=== PATIENT | female | born 1950 | race Caucasian/White ===

== ENCOUNTER 2017-01-17 01:02 | Emergency (ER) | payer MEDICARE, OTHER ==
[~2017-01-17] VITALS: Ht 160 cm; Wt 76.0 kg
[~2017-01-17 01:02] MED LIST: ALPH1CAP3 PO; AMBI10TA PO; AMIT10TA13 PO; ATOR10 PO; BENI20TA25 PO; BENI40TA30 PO; CALTTAB PO; CELE200 PO; CIPR500T93 PO; CLON.5 PO; CYCL-36 PO; FOLI1TAB PO; LEVO.075 PO; LIDO2SOL MT; METO25 PO; NEUR600T PO; PRED1TAB PO; PREM1.25 PO; PROT40TA PO; RITU500I IV; SUCR1TAB PO; SUMA20I; TAB-TAB PO; [UNRECOGNIZED DRUG - CODE] PO
[2017-01-17 01:12] VITALS: BP 119/89; PULSE 102; RESP 18; TEMP 98.7; O2SAT 96
[2017-05-01] MEDS ORDERED: CYCL1TAB29 (15:23)
[2017-05-01] MEDS ORDERED: ATOR10TA15 (15:23)
[2017-05-01] MEDS ORDERED: OLME0.09 (15:23)
[2017-05-01] MEDS ORDERED: PRED5TAB (15:23)
[2017-05-01] MEDS ORDERED: HYDR200T3 (15:23)
[2017-05-01] MEDS ORDERED: MORP1TAB25 (15:23)
[2017-05-01] MEDS ORDERED: METR250T15 (15:23)
[2017-05-01] MEDS ORDERED: MINO1TAB (15:23)
[2017-05-01] MEDS ORDERED: FOLI1TAB6 (15:23)
[2017-05-01] MEDS ORDERED: GABA600T (15:23)
[2017-05-01] MEDS ORDERED: CARA1SUS3 (15:23)
[2017-05-01] MEDS ORDERED: CELE1CAP8 (15:23)
[2017-05-01] MEDS ORDERED: PRED1 (15:23)
[2017-05-01] MEDS ORDERED: ESTR1.25 (15:23)
[2017-05-01] MEDS ORDERED: CLON0.12 (15:23)
[2017-05-01] MEDS ORDERED: LIDO1SOL8 (15:23)
[2017-05-01] MEDS ORDERED: AMIT25TA9 (15:23)
[2017-05-01] MEDS ORDERED: METF500T (15:23)
[2017-05-01] MEDS ORDERED: OLME1TAB13 (15:23)
[2017-05-01] MEDS ORDERED: PANT40TA3 (15:23)
[2017-05-01] MEDS ORDERED: ZOLP10TA3 (15:23)
[2017-05-01] MEDS ORDERED: LEVO.125 (15:23)
[2017-05-01] MEDS ORDERED: METO25TA3 (15:23)
== END 2017-01-17 03:11 | disposition left against medical advice (07) ==
LOC: PHED 01:02
DX: M79.642 Pain in left hand (principal)
CPT/HCPCS: 99281

== ENCOUNTER 2018-05-24 12:57 | Observation (INO) ==
--- NOTE | 2018-05-24 14:14 | ED ---
HPI General Chief complaint: Medical Clearance Stated complaint: Lt big toe infection x 10 days Time Seen by Provider: 05/24/18 13:50 Source: patient Mode of arrival: ambulatory Limitations: no limitations History of Present Illness HPI narrative: 67yo F with PMH of DM, rheumatoid arthritis presents to the ED with c/o worsening redness in left big toe today. Pt went to dispute resolution analyst Dr. Brown yesterday and was given bactrim and took 2 doses. She called his office again this morning and said it got worst so she was told to come to the ED for IV antibiotics. Denies any fever, chest pain, sob, n/v, abdominal pain, focal weakness or numbness. Related Data Home Medications Medication Instructions Recorded Confirmed Olmesamedox 10 mg PO HS 05/24/18 05/24/18 alpha lipoic acid 600 mg PO BID 05/24/18 05/24/18 amitriptyline 25 mg PO HS 05/24/18 05/24/18 atorvastatin 10 mg PO DAILY 05/24/18 05/24/18 celecoxib [Celebrex] 200 mg PO BID 05/24/18 05/24/18 clonazepam 0.125 mg PO BID 05/24/18 05/24/18 folic acid 1 mg PO DAILY 05/24/18 05/24/18 gabapentin 600 mg PO TID 05/24/18 05/24/18 hydroxychloroquine 200 mg PO BID 05/24/18 05/24/18 levothyroxine [Synthroid] 125 mcg PO DAILY 05/24/18 05/24/18 lidocaine HCl [Lidocaine Viscous] 1.25 ml MUCOUS MEMBRANE Q4H PRN 05/24/1805/24 metformin 2,000 mg PO BID 05/24/18 05/24/18 metoprolol tartrate 25 mg PO DAILY 05/24/18 05/24/18 minocycline 50 mg PO BID 05/24/18 05/24/18 morphine 30 mg PO Q12HR 05/24/18 05/24/18 pantoprazole 40 mg PO DAILY 05/24/18 05/24/18 prednisone 6 mg PO DAILY 05/24/18 05/24/18 zolpidem 1 tab PO HS 05/24/18 05/24/18 Allergies Allergy/AdvReac Type Severity Reaction Status Date / Time diatrizoate meglumine Allergy Severe Swelling Verified 05/24/18 13:12 gadobenic acid Allergy Severe Swelling Verified 05/24/18 13:12 gadodiamide Allergy Severe Swelling Verified 05/24/18 13:12 gadoteridol Allergy Severe Swelling Verified 05/24/18 13:12 iodixanol Allergy Severe Swelling Verified 05/24/18 13:12 iohexol Allergy Severe Swelling Verified 05/24/18 13:12 AMOX-CLAV Allergy Severe DENIES Uncoded 03/06/14 15:11 ALLERGY Review of Systems ROS Unobtainable All other systems reviewed negative except as stated in HPI [facility] Medical History Medical History Chronic obstructive pulmonary disease (Acute) Chronic pain (Acute) Diabetes 1.5, managed as type 2 (Acute) Fibromyalgia (Acute) Gastroesophageal reflux (Acute) History of esophageal stricture (Acute) History of hiatal hernia (Acute) History of migraine (Acute) Hyperlipidemia (Acute) Obstructive sleep apnea (Acute) Rheumatoid arthritis (Acute) Surgical History Surgical History H/O toe surgery (Acute) History of Aramis fundoplication (Acute) History of appendectomy (Acute) History of bilateral knee replacement (Acute) History of tonsillectomy (Acute) Hx of section (Acute) Hx of surgical fusion joint (Acute) S/P wrist surgery (Acute) Social History Social History Substance History: No History of Abuse Second Hand Smoke Exposure: No Smoking Status: Never smoker How Often Do You Have a Drink Containing Alcohol: Never Recent Travel in [facility] within the Last 8 Weeks: No Recent Out of Country Travel within the Last 8 Weeks: No Immunization History Tetanus Immunization: <5 Years Hx Influenza Vaccine This Season: Yes Exam Narrative Exam Narrative: GENERAL: 67yo F not in distress. SKIN: Focused skin assessment warm/dry. HEAD: Atraumatic. Normocephalic. EYES: Pupils equal and round. No scleral icterus. No injection or drainage. CARDIOVASCULAR: Regular rate and rhythm. No murmur appreciated. RESPIRATORY: No accessory muscle use. Clear to auscultation. Breath sounds equal bilaterally. GASTROINTESTINAL: Abdomen soft, non-tender, nondistended. MUSCULOSKELETAL: Left foot: +2cm by 2cm erythema medial aspect of 1st metatarsal. NEUROLOGICAL: Awake and alert. No obvious cranial nerve deficits. Motor grossly within normal limits. Normal speech. PSYCHIATRIC: Appropriate mood and affect; insight and judgment normal. Course Initial Documented Vital Signs Temperature 98.0 F 05/24/18 13:12 Pulse Rate 89 05/24/18 13:12 Respiratory Rate 16 05/24/18 13:12 Blood Pressure 122/74 05/24/18 13:12 Pulse Oximetry 96 05/24/18 13:12 Last Documented Vital Signs Temperature 98.0 F 05/24/18 13:12 Pulse Rate 89 05/24/18 13:12 Respiratory Rate 16 05/24/18 13:12 Blood Pressure 122/74 05/24/18 13:12 Pulse Oximetry 96 05/24/18 13:12 Medical Decision Making MDM Narrative Medical decision making narrative: 67yo F with left toe infection was sent in by her dispute resolution analyst Dr. Arellano for IV antibiotics and admission. I spoke to Dr. Arellano on the phone and did send him a picture of her left toe after obtaining patient permission. He said it does look worst and wants to obtain labs including ESR and MRI foot with and without contrast if creatinine normal. Want to admit pt under hospitalist and he will consult so I ordered IV vancomycin and place podiatry consult. Labs reviewed, no leukocytosis. H/H normal. Creatinine normal. ESR normal at 6. Lactic acid mildly elevated at 2.3. MRI of left foot with and without contrast ordered. Pt said she is not allergic to MRI contrast. MRI left foot showed soft tissue swelling. No evidence of septic arthritis or osteomyelitis. Pt admitted for observation with podiatry consult since Dr. Arellano noticed worsening of cellulitis while on PO antibiotics. Discussed with Dr. Castañeda and accepted to his service. Differential Diagnosis Differential Diagnosis: Osteomyelitis vs. septic joint vs. cellulitis vs. abscess Lab Data Result diagrams: 05/24/18 14:25 05/24/18 14:25 Lab Results 05/24/18 05/24/18 05/24/18 Range/Units 14:25 14:25 14:25 CBC w Diff Auto diff final WBC 10.9 (4.0-11.0) th/mm3 RBC 4.76 (4.00-5.30) mil/mm3 Hgb 13.6 (11.6-15.3) gm/dL Hct 40.8 (35.0-46.0) % MCV 85.7 (80.0-100.0) fL MCH 28.7 (27.0-34.0) pg MCHC 33.4 (32.0-36.0) % RDW 14.1 (11.6-17.2) % Plt Count 316 (150-450) th/mm3 MPV 8.5 (7.0-11.0) fL Neut % (Auto) 76.4 H (16.0-70.0) % Lymph % (Auto) 17.6 (9.0-44.0) % [place] % (Auto) 4.0 (0.0-8.0) % Eos % (Auto) 1.3 (0.0-4.0) % Baso % (Auto) 0.7 (0.0-2.0) % Neut # (Auto) 8.4 H (1.8-7.7) th/mm3 Lymph # (Auto) 1.9 (1.0-4.8) th/mm3 [place] # (Auto) 0.4 (0.0-0.9) th/mm3 Eos # (Auto) 0.1 (0.0-0.4) th/mm3 Baso # (Auto) 0.1 (0.0-0.2) th/mm3 WBC Differential . Differential Comment . ESR (0-30) mm/hr PT 10.2 (9.8-11.6) sec INR 1.0 Ratio APTT 24.2 L (24.3-30.1) sec Sodium 138 (136-145) meq/L Potassium 4.2 (3.5-5.1) meq/L Chloride 106 (98-107) meq/L Carbon Dioxide 24.1 (21.0-32.0) meq/L Anion Gap 8 (5-15) meq/L BUN 18 (7-18) mg/dL Creatinine 0.85 (0.50-1.00) mg/dL Estimated GFR 67 L (>89) mL/min POC Glucose (68-110) mg/dl Random Glucose 137 H (74-106) mg/dL Lactic Acid (0.4-2.0) mmol/L Calcium 9.4 (8.5-10.1) mg/dL 05/24/18 05/24/18 05/24/18 Range/Units 14:25 14:35 16:55 CBC w Diff WBC (4.0-11.0) th/mm3 RBC (4.00-5.30) mil/mm3 Hgb (11.6-15.3) gm/dL Hct (35.0-46.0) % MCV (80.0-100.0) fL MCH (27.0-34.0) pg MCHC (32.0-36.0) % RDW (11.6-17.2) % Plt Count (150-450) th/mm3 MPV (7.0-11.0) fL Neut % (Auto) (16.0-70.0) % Lymph % (Auto) (9.0-44.0) % [place] % (Auto) (0.0-8.0) % Eos % (Auto) (0.0-4.0) % Baso % (Auto) (0.0-2.0) % Neut # (Auto) (1.8-7.7) th/mm3 Lymph # (Auto) (1.0-4.8) th/mm3 [place] # (Auto) (0.0-0.9) th/mm3 Eos # (Auto) (0.0-0.4) th/mm3 Baso # (Auto) (0.0-0.2) th/mm3 WBC Differential Differential Comment ESR 6 (0-30) mm/hr PT (9.8-11.6) sec INR Ratio APTT (24.3-30.1) sec Sodium (136-145) meq/L Potassium (3.5-5.1) meq/L Chloride (98-107) meq/L Carbon Dioxide (21.0-32.0) meq/L Anion Gap (5-15) meq/L BUN (7-18) mg/dL Creatinine (0.50-1.00) mg/dL Estimated GFR (>89) mL/min POC Glucose (68-110) mg/dl Random Glucose (74-106) mg/dL Lactic Acid 2.3 H 1.5 (0.4-2.0) mmol/L Calcium (8.5-10.1) mg/dL 05/24/18 Range/Units 17:05 CBC w Diff WBC (4.0-11.0) th/mm3 RBC (4.00-5.30) mil/mm3 Hgb (11.6-15.3) gm/dL Hct (35.0-46.0) % MCV (80.0-100.0) fL MCH (27.0-34.0) pg MCHC (32.0-36.0) % RDW (11.6-17.2) % Plt Count (150-450) th/mm3 MPV (7.0-11.0) fL Neut % (Auto) (16.0-70.0) % Lymph % (Auto) (9.0-44.0) % [place] % (Auto) (0.0-8.0) % Eos % (Auto) (0.0-4.0) % Baso % (Auto) (0.0-2.0) % Neut # (Auto) (1.8-7.7) th/mm3 Lymph # (Auto) (1.0-4.8) th/mm3 [place] # (Auto) (0.0-0.9) th/mm3 Eos # (Auto) (0.0-0.4) th/mm3 Baso # (Auto) (0.0-0.2) th/mm3 WBC Differential Differential Comment ESR (0-30) mm/hr PT (9.8-11.6) sec INR Ratio APTT (24.3-30.1) sec Sodium (136-145) meq/L Potassium (3.5-5.1) meq/L Chloride (98-107) meq/L Carbon Dioxide (21.0-32.0) meq/L Anion Gap (5-15) meq/L BUN (7-18) mg/dL Creatinine (0.50-1.00) mg/dL Estimated GFR (>89) mL/min POC Glucose 86 (68-110) mg/dl Random Glucose (74-106) mg/dL Lactic Acid (0.4-2.0) mmol/L Calcium (8.5-10.1) mg/dL Imaging Data Radiologist's impression: Foot MRI 05/24/18 15:23 CONCLUSION: 1. Soft tissue swelling with mild enhancement along the medial aspect of the interphalangeal joint of the great toe.. This may represent focal cellulitis. 2. No evidence of septic arthritis or osteomyelitis or 3. Deformity of the interphalangeal joint of the great toe characteristic of degenerative arthropathy. Discharge Plan Discharge Disposition Patient Disposition: 30 Still Patient Physicians Team ED Provider: Yasemin Patel Primary Care Provider: Lamine Lo Attending Provider: Jorge Castañeda Other Providers: Nathan Arellano Status ED Status: Admitted Observation Patient
[2018-05-24 14:41] LABS: Baso # (Auto) 0.1 th/mm3 (0.0-0.2); Baso % (Auto) 0.7 % (0.0-2.0); Eos # (Auto) 0.1 th/mm3 (0.0-0.4); Eos % (Auto) 1.3 % (0.0-4.0); Hematocrit 40.8 % (35.0-46.0); Hemoglobin 13.6 gm/dL (11.6-15.3); Lymph # (Auto) 1.9 th/mm3 (1.0-4.8); Lymph % (Auto) 17.6 % (9.0-44.0); Mean Corpuscular HGB Conc 33.4 % (32.0-36.0); Mean Corpuscular Hemoglobin 28.7 pg (27.0-34.0); Mean Corpuscular Volume 85.7 fL (80.0-100.0); Mean Platelet Volume 8.5 fL (7.0-11.0); Mono # (Auto) 0.4 th/mm3 (0.0-0.9); Neut # (Auto) 8.4 th/mm3 (1.8-7.7); Neut % (Auto) 76.4 % (16.0-70.0); Platelet Count 316 th/mm3 (150-450); Red Blood Count 4.76 mil/mm3 (4.00-5.30); Red Cell Distribution Width 14.1 % (11.6-17.2); White Blood Count 10.9 th/mm3 (4.0-11.0)
[2018-05-24 14:53] LABS: Potassium 4.2 meq/L (3.5-5.1)
[2018-05-24 14:56] LABS: Activated Partial Thrombo Time 24.2 sec (24.3-30.1); Calcium 9.4 mg/dL (8.5-10.1); Prothrombin Time 10.2 sec (9.8-11.6)
[2018-05-24 14:57] LABS: Carbon Dioxide 24.1 meq/L (21.0-32.0)
[2018-05-24] MEDS ORDERED: Vancomycin Inj 1 GM/200 ML PIGGYBACK IV.SIG SCH (15:00)
[2018-05-24] MEDS ORDERED: Vancomycin Inj 1 GM/200 ML PIGGYBACK IV.SIG ONE (16:05)
[2018-05-24] MEDS ORDERED: Gadodiamide PF Inj 287 MG/ML 5 ML Syringe (for RAD MRI) IVCONTRAST ONE (16:40)
--- NOTE | 2018-05-24 17:20 | MR ---
EXAM DATE: 05/24/2018 4:53 PM EDT AGE/SEX: 67 years / Female INDICATIONS: Osteomyelitis. Left foot infection, sore on great toe on medial side. CLINICAL DATA: This is the patient's initial encounter. Patient reports that signs and symptoms have been present for 1 week and indicates a pain score of 7/10. MEDICAL/SURGICAL HISTORY: Diabetes mellitus type II. Rheumatoid arthritis. section. B ilateral hips and bilateral knee replacement. COMPARISON: No prior exams available for comparison. TECHNIQUE: Multiplanar, multisequence MRI examination was performed without contrast and after th e intravenous administration of 13 ml Gadavist (gadobutrol) single exam dose. FINDINGS: Bones: Bone marrow signal intensity is well-maintained throughout the osseous structures. There are n o cortically destructive changes or evidence of bone marrow edema. There is no evidence of abnormal e nhancement. Joint Spaces: Significant arthropathy is identified of the interphalangeal joint of the great toe. Th ere is irregularity along the articulating surfaces with mild marginal spurring. Joints are otherwise well-maintained. Tendons: The flexor tendons are intact. Soft Tissues: Tissue swelling is identified along the medial aspect of the great toe adjacent to the interphalangeal joint. No other significant soft tissue abnormality is noted. Other: The plantar fascia is intact. No signal abnormalities are seen in the plantar musculature. Post Contrast: There are no abnormal areas of enhancement in the marrow or muscles on images obtained after intravenous administration of gadolinium. CONCLUSION: 1. Soft tissue swelling with mild enhancement along the medial aspect of the interphalangeal joint o f the great toe.. This may represent focal cellulitis. 2. No evidence of septic arthritis or osteomyelitis or 3. Deformity of the interphalangeal joint of the great toe characteristic of degenerative arthropath y. Electronically signed by: Jose Dao MD 05/24/2018 5:18 PM EDT
[2018-05-24] MEDS ORDERED: Temazepam 15 MG Capsule PO PRN (17:21)
[2018-05-24] MEDS ORDERED: Bisacodyl 10 MG Supp RECTAL PRN (17:21)
[2018-05-24] MEDS ORDERED: Acetaminophen 325 MG Tablet PO PRN (17:21)
[2018-05-24] MEDS ORDERED: Dextrose 50% in Water 50 ML Vial IV.PUSH PRN (17:23)
[2018-05-24] MEDS ORDERED: Sod Chloride 0.9% Inj 1,000 ML IV.CONT SCH (17:30)
--- NOTE | 2018-05-24 17:43 | P.HP ---
History of Present Illness Primary Care Physician: Lamine Lo MD Chief Complaint: Left great toe redness History of Present Illness: 67-year-old female with rather significant medical history of diabetes , rheumatoid arthritis, fibromyalgia, chronic obstructive pulmonary disease who presented to the emergency department at the request of her manager image office because of her left great toe redness. Patient states that she is under care of Dr. Quezada in outpatient setting and he started her on antibiotics yesterday of Bactrim. She took 2 doses of antibiotics and she did not feel that if her toe was improving so she called Dr. Quezada office and they recommended that she go to the ER for evaluation. Patient had workup done in the emergency department which is relatively unremarkable. There is no leukocytosis, sed rate was normal, MRI was performed of the foot which did not indicate any signs of septic arthritis or osteomyelitis. Showed possible focal cellulitis. It was recommended that the patient be observed in the hospital with IV antibiotics to evaluate for improvement. - Diagnosis (1) Cellulitis of great toe, left Review of Systems All other systems reviewed negative except as stated in HPI Skin/Breast: Reports change in skin color, Reports sores PMFSH - History History Provided By: Patient - Medical History Medical History: Medical History (Last Updated 05/24/18 @ 17:39 by SUZY Camargo) Chronic obstructive pulmonary disease Chronic pain Diabetes 1.5, managed as type 2 Fibromyalgia Gastroesophageal reflux History of esophageal stricture History of hiatal hernia History of migraine Hyperlipidemia Obstructive sleep apnea Rheumatoid arthritis - Surgical History Surgical History: Surgical History (Last Updated 05/24/18 @ 17:39 by SUZY Camargo) H/O toe surgery History of Aramis fundoplication History of appendectomy History of bilateral knee replacement History of tonsillectomy Hx of section Hx of surgical fusion joint S/P wrist surgery - Tobacco History Second Hand Smoke Exposure: No Smoking Status: Never smoker - Alcohol History How Often Do You Have a Drink Containing Alcohol: Never - Substance Use History Substance History: No History of Abuse - Travel History Recent Travel in the [place] Within the Last 8 Weeks: No Recent Travel Out of the Country Within the Last 8 Weeks: No - Immunization History Tetanus Immunization: <5 Years Hx Influenza Vaccine This Season: Yes Medications and Allergies Active Medications: Active Medications Acetaminophen (Tylenol) 650 mg PO Q4H PRN PRN Reason: Temp > 100.4 Al Hydroxide/Mg Hydroxide (Milk Of Magnesia Liq) 30 ml PO Q12H PRN PRN Reason: Mild Constipation Amitriptyline HCl (Elavil) 25 mg PO HS [facility] Atorvastatin Calcium (Lipitor) 10 mg PO DAILY [facility] Bisacodyl (Dulcolax Supp) 10 mg RECTAL DAILY PRN PRN Reason: SEVERE CONSITIPATION Dextrose (D50w Vial) 50 ml IV.PUSH UNSCH PRN PRN Reason: PER HYPOGLYCEMIA PROTOCOL Folic Acid (Folic Acid) 1 mg PO DAILY [facility] Glucagon (Glucagon Inj) 1 mg OTHER PRN PRN PRN Reason: for Hypoglycemia Protocol Heparin Sodium (Porcine) (Heparin Inj) 5,000 units SQ Q12H [facility] Hydroxychloroquine Sulfate (Plaquenil) 200 mg PO BID [facility] Sodium Chloride (Ns Inj) 1,000 mls @ 42 mls/hr IV.CONT .[id number] [facility] Piperacillin/Tazobactam/Dextrose (Zosyn 3.375 Gm Premix) 50 mls @ 100 mls/hr IV.SIG Q6H [facility] Pharmacy Profile Note (Vancomycin Consult Pharmacy) 0 mls @ 0 mls/hr OTHER UNSCH [facility] Insulin Aspart (Novolog Insulin Correctional Sugar Inj) 0 unit SQ ACHS [place]; Protocol Lactulose (Lactulose Liq) 30 ml PO DAILY PRN PRN Reason: SEVERE CONSITIPATION Levothyroxine Sodium (Synthroid) 125 mcg PO DAILY [facility] Metoprolol Tartrate (Lopressor) 25 mg PO DAILY [facility] Non-Formulary Medication (Clonazepam [Clonazepam]) 0.125 mg PO BID [facility] Non-Formulary Medication (Morphine [Morphine]) 30 mg PO Q12HR [facility] Non-Formulary Medication (Gabapentin [Gabapentin]) 600 mg PO TID [facility] Ondansetron HCl (Zofran Inj) 4 mg IV.PUSH Q6H PRN PRN Reason: NAUSEA OR VOMITING Pantoprazole Sodium (Protonix) 40 mg PO DAILY [facility] Prednisone (Deltasone) 6 mg PO DAILY [facility] Senna/Docusate Sodium (Renate-Colace) 1 tab PO BID [facility] Sennosides (Senokot) 17.2 mg PO Q12H PRN PRN Reason: Moderate Constipation Temazepam (Restoril) 15 mg PO HS PRN PRN Reason: INSOMNIA Allergies Allergy/AdvReac Type Severity Reaction Status Date / Time diatrizoate meglumine Allergy Severe Swelling Verified 05/24/18 13:12 gadobenic acid Allergy Severe Swelling Verified 05/24/18 13:12 gadodiamide Allergy Severe Swelling Verified 05/24/18 13:12 gadoteridol Allergy Severe Swelling Verified 05/24/18 13:12 iodixanol Allergy Severe Swelling Verified 05/24/18 13:12 iohexol Allergy Severe Swelling Verified 05/24/18 13:12 AMOX-CLAV Allergy Severe DENIES Uncoded 03/06/14 15:11 ALLERGY Home Medications Medication Instructions Recorded Confirmed Type Olmesamedox 10 mg PO HS 05/24/18 05/24/18 History alpha lipoic acid 600 mg PO BID 05/24/18 05/24/18 History amitriptyline 25 mg PO HS 05/24/18 05/24/18 History atorvastatin 10 mg PO DAILY 05/24/18 05/24/18 History celecoxib [Celebrex] 200 mg PO BID 05/24/18 05/24/18 History clonazepam 0.125 mg PO BID 05/24/18 05/24/18 History folic acid 1 mg PO DAILY 05/24/18 05/24/18 History gabapentin 600 mg PO TID 05/24/18 05/24/18 History hydroxychloroquine 200 mg PO BID 05/24/18 05/24/18 History levothyroxine [Synthroid] 125 mcg PO DAILY 05/24/18 05/24/18 History lidocaine HCl [Lidocaine Viscous] 1.25 ml MUCOUS MEMBRANE Q4H PRN 05/24/1805/24 History metformin 2,000 mg PO BID 05/24/18 05/24/18 History metoprolol tartrate 25 mg PO DAILY 05/24/18 05/24/18 History minocycline 50 mg PO BID 05/24/18 05/24/18 History morphine 30 mg PO Q12HR 05/24/18 05/24/18 History pantoprazole 40 mg PO DAILY 05/24/18 05/24/18 History prednisone 6 mg PO DAILY 05/24/18 05/24/18 History zolpidem 1 tab PO HS 05/24/18 05/24/18 History Exam Vital signs: Vital Signs 05/24/18 13:12 Temperature 98.0 F Pulse Rate 89 Respiratory Rate 16 Blood Pressure 122/74 Pulse Oximetry 96 Intake & Output 05/23/18 05/24/18 05/24/18 18:59 06:59 18:59 Weight 66 kg Narrative: GENERAL: Well-developed, well-nourished, in no acute distress. alert and orientated HEENT: Head is normocephalic without any lesions or masses noted. Facial features are symmetric. Eyes: Pupils equal round reactive to light. Extraocular muscles are intact. Conjunctivae were clear. Oropharyngeal: Pharynx without any erythema edema. Tongue is midline without deviation. Buccal mucosa is moist without any masses or lesions NECK: Supple without any masses. Trachea midline no deviation. No JVD, no bruits are appreciated CARDIAC: Regular rhythm, regular rate. S1/S2 are heard. No murmurs gallops or rubs. LUNGS: Clear to auscultation bilaterally. No wheeze, rhonchi or rales. No use of accessory muscles on inspiration or expiration. ABDOMEN: Soft, nontender. Nondistended. Bowel sounds heard in all 4 quadrants. No organomegaly or masses. Negative rebound, negative guarding EXTREMITIES: No edema, pulses are equal bilaterally. No cyanosis or clubbing NEUROLOGY: Mood and affect appear appropriate. Cranial nerves II through XII grossly intact. Muscle strength 5/5 in upper and lower extremities bilaterally. Deep tendon reflexes are 2+ in upper and lower extremities bilaterally. LEFT LOWER EXTREMITY: Patient has a open ulcerated area noted at the DIP joint on the lateral aspect of the left great toe measuring 0.5 cm with a mild erythemic area surrounding measuring approximately 2 cm. No exudates or purulence were noted Results - Labs CBC & Chem 7: 05/24/18 14:25 05/24/18 14:25 Labs: Laboratory Results - last 24 hr 05/24/18 05/24/18 05/24/18 14:25 14:25 14:25 CBC w Diff Auto diff final WBC 10.9 RBC 4.76 Hgb 13.6 Hct 40.8 MCV 85.7 MCH 28.7 MCHC 33.4 RDW 14.1 Plt Count 316 MPV 8.5 Neut % (Auto) 76.4 H Lymph % (Auto) 17.6 [place] % (Auto) 4.0 Eos % (Auto) 1.3 Baso % (Auto) 0.7 Neut # (Auto) 8.4 H Lymph # (Auto) 1.9 [place] # (Auto) 0.4 Eos # (Auto) 0.1 Baso # (Auto) 0.1 WBC Differential . Differential Comment . ESR PT 10.2 INR 1.0 APTT 24.2 L Sodium 138 Potassium 4.2 Chloride 106 Carbon Dioxide 24.1 Anion Gap 8 BUN 18 Creatinine 0.85 Estimated GFR 67 L POC Glucose Random Glucose 137 H Lactic Acid Calcium 9.4 05/24/18 05/24/18 05/24/18 14:25 14:35 16:55 CBC w Diff WBC RBC Hgb Hct MCV MCH MCHC RDW Plt Count MPV Neut % (Auto) Lymph % (Auto) [place] % (Auto) Eos % (Auto) Baso % (Auto) Neut # (Auto) Lymph # (Auto) [place] # (Auto) Eos # (Auto) Baso # (Auto) WBC Differential Differential Comment ESR 6 PT INR APTT Sodium Potassium Chloride Carbon Dioxide Anion Gap BUN Creatinine Estimated GFR POC Glucose Random Glucose Lactic Acid 2.3 H 1.5 Calcium 05/24/18 17:05 CBC w Diff WBC RBC Hgb Hct MCV MCH MCHC RDW Plt Count MPV Neut % (Auto) Lymph % (Auto) [place] % (Auto) Eos % (Auto) Baso % (Auto) Neut # (Auto) Lymph # (Auto) [place] # (Auto) Eos # (Auto) Baso # (Auto) WBC Differential Differential Comment ESR PT INR APTT Sodium Potassium Chloride Carbon Dioxide Anion Gap BUN Creatinine Estimated GFR POC Glucose 86 Random Glucose Lactic Acid Calcium - Imaging Impressions Foot MRI 05/24/18 15:23 CONCLUSION: 1. Soft tissue swelling with mild enhancement along the medial aspect of the interphalangeal joint of the great toe.. This may represent focal cellulitis. 2. No evidence of septic arthritis or osteomyelitis or 3. Deformity of the interphalangeal joint of the great toe characteristic of degenerative arthropathy. Caprini VTE Risk Assessment Caprini VTE Risk Assessment: Moderate/High Risk (score >= 2) Caprini Risk Assessment Model: Point Value = 1 Point Value = 2 Point Value = 3 Point Value = 5 Age 41-60 Minor surgery BMI > 25 kg/m2 Swollen legs Varicose veins or History of unexplained or recurrent spontaneous Oral contraceptives or hormone replacement Sepsis (< 1 month) Serious lung disease, including pneumonia (< 1 month) Abnormal pulmonary function Acute myocardial infarction Congestive heart failure (< 1 month) History of inflammatory bowel disease Medical patient at bed rest Age 61-74 Arthroscopic surgery Major open surgery (> 45 min) Laparoscopic surgery (> 45 min) Malignancy Confined to bed (> 72 hours) Immobilizing plaster cast Central venous access Age >= 75 History of VTE Family history of VTE Factor V Leiden Prothrombin [id number] Lupus anticoagulant Anticardiolipin antibodies Elevated serum homocysteine Heparin-induced thrombocytopenia Other congenital or acquired thrombophilia Stroke (< 1 month) Elective arthroplasty Hip, pelvis, or leg fracture Acute spinal cord injury (< 1 month) Prophylaxis Regimen: Total Risk Factor Score Risk Level Prophylaxis Regimen 0-1 Low Early ambulation 2 Moderate Order ONE of the following: *Sequential Compression Device (SCD) *Heparin 5000 units SQ BID 3-4 Higher Order ONE of the following medications: *Heparin 5000 units SQ TID *Enoxaparin/Lovenox 40 mg SQ daily (WT < 150 kg, CrCl > 30 mL/min) *Enoxaparin/Lovenox 30 mg SQ daily (WT < 150 kg, CrCl > 10-29 mL/min) *Enoxaparin/Lovenox 30 mg SQ BID (WT < 150 kg, CrCl > 30 mL/min) AND/OR *Sequential Compression Device (SCD) 5 or more Highest Order ONE of the following medications: *Heparin 5000 units SQ TID (Preferred with Epidurals) *Enoxaparin/Lovenox 40 mg SQ daily (WT < 150 kg, CrCl > 30 mL/min) *Enoxaparin/Lovenox 30 mg SQ daily (WT < 150 kg, CrCl > 10-29 mL/min) *Enoxaparin/Lovenox 30 mg SQ BID (WT < 150 kg, CrCl > 30 mL/min) AND *Sequential Compression Device (SCD) Assessment and Plan - Assessment (1) Cellulitis of great toe, left Code(s): L03.032 - Cellulitis of left toe Status: Acute - Plan Left great toe cellulitis with ulceration -No signs of systemic infection. WBC count was normal, lactic acid level has returned to normal, sed rate is normal -MRI shows focal area of cellulitis, no indication of any osteomyelitis or abscess -Dr. Quezada was consulted at his request, -Patient will be started on vancomycin and Zosyn Diabetes -Accu-Cheks with sliding scale insulin -Diabetic diet Fibromyalgia, rheumatoid arthritis, chronic pain -Home medications have been continued DVT prevention -Subcutaneous heparin
[2018-05-24] MEDS ORDERED: Piperacil/Tazo 3.375 GM Premix 50 ML IV.SIG SCH (18:00)
[2018-05-24] MEDS ORDERED: Vancomycin Consult Pharmacy 1 EACH OTHER SCH (18:00)
[2018-05-24] MEDS: Gabapentin 300 MG Capsule PO SCH (18:30)
[2018-05-24] MEDS: Heparin - SQ 10,000 UNITS/ML Vial SQ SCH (18:31)
[2018-05-24] MEDS ORDERED: Amitriptyline 25 MG Tablet PO SCH (21:00)
[2018-05-24] MEDS: Piperacil/Tazo 3.375 GM Premix 50 ML IV.SIG SCH (21:10)
[2018-05-24] MEDS: Hydroxychloroquine 200 MG Tablet PO SCH (21:10)
[2018-05-24] MEDS: clonazePAM 0.5 MG Tablet PO SCH (21:10)
[2018-05-24] MEDS: Morphine Sulfate 15 MG IR Tablet PO SCH (21:11)
[2018-05-24] MEDS: Senna/Docusate Sodium 8.6/50 MG Tablet PO SCH (21:11)
[2018-05-24] MEDS: Insulin NovoLOG Aspart Correctional Sugar Inj SQ SCH (22:28)
[2018-05-25] MEDS: Piperacil/Tazo 3.375 GM Premix 50 ML IV.SIG SCH ×2 (03:43→08:38)
[2018-05-25] MEDS: Heparin - SQ 10,000 UNITS/ML Vial SQ SCH (05:06)
--- NOTE | 2018-05-25 08:30 | P.PN ---
Subjective Interval history: Follow-up for left great toe cellulitis, ulceration. Patient denies any new complaints. No obvious exudates or purulence. Patient denies any worsening pain. Physical Exam Vital signs: Vital Signs 05/24/18 13:12 05/24/18 18:07 05/24/18 18:22 Temperature 98.0 F 97.4 F L Pulse Rate 89 80 72 Respiratory Rate 16 18 20 Blood Pressure 122/74 160/90 H 152/75 H Pulse Oximetry 96 100 98 05/24/18 20:00 05/25/18 04:00 05/25/18 07:54 Temperature 99.0 F 97.5 F L 97.6 F Pulse Rate 88 77 98 H Respiratory Rate 18 18 Blood Pressure 116/73 124/60 145/86 H Pulse Oximetry 94 L 99 97 Intake & Output 05/24/18 05/25/18 05/25/18 18:59 06:59 18:59 Intake Total 200 / 200 580 / 580 Balance 200 / 200 580 / 580 Weight 66.8 kg 67.1 kg Intake: IV 200 / 200 100 / 100 Zosyn 3.375 GM Premix 50 ML @ 100 / 100 100 mls/hr IV.SIG Q6H IRENE Rx#: [id number] Vancomycin Inj 1 gm In 200 ml @ 200 / 200 200 mls/hr IV.SIG ONCE ONE Rx# :[id number] Oral 480 / 480 Other: # Voids 4 Weight On Admission 66.8 kg Narrative: GENERAL: Well-developed, well-nourished, in no acute distress. alert and orientated HEENT: Head is normocephalic without any lesions or masses noted. Facial features are symmetric. Eyes: Extraocular muscles are intact. Conjunctivae were clear. NECK: Supple without any masses. Trachea midline no deviation. No JVD, CARDIAC: Regular rhythm, regular rate. S1/S2 are heard. No murmurs gallops or rubs. LUNGS: Clear to auscultation bilaterally. No wheeze, rhonchi or rales. No use of accessory muscles on inspiration or expiration. ABDOMEN: Soft, nontender. Nondistended. Bowel sounds heard in all 4 quadrants. No organomegaly or masses. Negative rebound, negative guarding EXTREMITIES: No edema, pulses are equal bilaterally. No cyanosis or clubbing NEUROLOGY: Mood and affect appear appropriate. Cranial nerves II through XII grossly intact. Moving all extremities, speech is clear LEFT LOWER EXTREMITY: Patient has a open ulcerated area noted at the DIP joint on the lateral aspect of the left great toe measuring 0.5 cm with improvement of the erythema surrounding measuring approximately 2 cm. No exudates or purulence were noted Results - Labs CBC & Chem 7: 05/24/18 14:25 05/25/18 06:00 Laboratory Results - last 24 hr 05/24/18 05/24/18 05/24/18 14:25 14:25 14:25 CBC w Diff Auto diff final WBC 10.9 RBC 4.76 Hgb 13.6 Hct 40.8 MCV 85.7 MCH 28.7 MCHC 33.4 RDW 14.1 Plt Count 316 MPV 8.5 Neut % (Auto) 76.4 H Lymph % (Auto) 17.6 Dane % (Auto) 4.0 Eos % (Auto) 1.3 Baso % (Auto) 0.7 Neut # (Auto) 8.4 H Lymph # (Auto) 1.9 Dane # (Auto) 0.4 Eos # (Auto) 0.1 Baso # (Auto) 0.1 WBC Differential . Differential Comment . ESR PT 10.2 INR 1.0 APTT 24.2 L Sodium 138 Potassium 4.2 Chloride 106 Carbon Dioxide 24.1 Anion Gap 8 BUN 18 Creatinine 0.85 Estimated GFR 67 L POC Glucose Random Glucose 137 H Lactic Acid Calcium 9.4 05/24/18 05/24/18 05/24/18 14:25 14:35 16:55 CBC w Diff WBC RBC Hgb Hct MCV MCH MCHC RDW Plt Count MPV Neut % (Auto) Lymph % (Auto) Dane % (Auto) Eos % (Auto) Baso % (Auto) Neut # (Auto) Lymph # (Auto) Dane # (Auto) Eos # (Auto) Baso # (Auto) WBC Differential Differential Comment ESR 6 PT INR APTT Sodium Potassium Chloride Carbon Dioxide Anion Gap BUN Creatinine Estimated GFR POC Glucose Random Glucose Lactic Acid 2.3 H 1.5 Calcium 05/24/18 05/25/18 05/25/18 17:05 06:00 07:37 CBC w Diff WBC RBC Hgb Hct MCV MCH MCHC RDW Plt Count MPV Neut % (Auto) Lymph % (Auto) Dane % (Auto) Eos % (Auto) Baso % (Auto) Neut # (Auto) Lymph # (Auto) Dane # (Auto) Eos # (Auto) Baso # (Auto) WBC Differential Differential Comment ESR PT INR APTT Sodium Potassium Chloride Carbon Dioxide Anion Gap BUN Creatinine 0.78 Estimated GFR 74 L POC Glucose 86 73 Random Glucose Lactic Acid Calcium - Imaging Impressions Foot MRI 05/24/18 15:23 CONCLUSION: 1. Soft tissue swelling with mild enhancement along the medial aspect of the interphalangeal joint of the great toe.. This may represent focal cellulitis. 2. No evidence of septic arthritis or osteomyelitis or 3. Deformity of the interphalangeal joint of the great toe characteristic of degenerative arthropathy. - Procedures None Assessment and Plan - Assessment (1) Cellulitis of great toe, left Code(s): L03.032 - Cellulitis of left toe Status: Acute - Plan Left great toe cellulitis with ulceration -No signs of systemic infection. WBC count was normal, lactic acid level has returned to normal, sed rate is normal -MRI shows focal area of cellulitis, no indication of any osteomyelitis or abscess -Dr. Quezada was consulted, I consulted with Dr. Quezada extensively about patient care. Patient does not want to remain in the hospital at this time. We reviewed all the medical records, MRI report. Dr. Quezada arrange for patient to be seen in his office on Monday. He recommended at least double coverage for her infection upon discharge. We discussed antibiotic coverage to include Bactrim and Cipro. Dr. Quezada is in agreement. We will also add topical Bactroban for improved treatment -Continue on vancomycin and Zosyn Diabetes -Accu-Cheks with sliding scale insulin -Diabetic diet Fibromyalgia, rheumatoid arthritis, chronic pain -Home medications have been continued DVT prevention -Subcutaneous heparin Discharge Planning: Discharge home in stable condition Activity: Ad kyra. Diet: Healthy heart diet Medication per medication reconciliation Follow-up with primary medical doctor in 1 week, patient to follow-up with Dr. Quezada on Monday. His office is already called and made the appointment.
[2018-05-25] MEDS: Insulin NovoLOG Aspart Correctional Sugar Inj SQ SCH (08:37)
[2018-05-25] MEDS: Hydroxychloroquine 200 MG Tablet PO SCH (08:41)
[2018-05-25] MEDS: Gabapentin 300 MG Capsule PO SCH (08:41)
[2018-05-25] MEDS: clonazePAM 0.5 MG Tablet PO SCH (08:41)
[2018-05-25] MEDS: Senna/Docusate Sodium 8.6/50 MG Tablet PO SCH (08:41)
[2018-05-25] MEDS: Morphine Sulfate 15 MG IR Tablet PO SCH (08:42)
[2018-05-25] MEDS ORDERED: predniSONE 1 MG Tablet PO SCH (09:00)
[2018-05-25] MEDS ORDERED: Levothyroxine 125 MCG Tablet PO SCH (09:00)
[2018-05-25] MEDS ORDERED: Metoprolol Tartrate 25 MG Tablet PO SCH (09:00)
[2018-05-25] MEDS ORDERED: Folic Acid 1 MG Tablet PO SCH (09:00)
[2018-05-25] MEDS ORDERED: Vancomycin Inj 1,250 MG in Sodium Chlor 0.9% Inj 250 ML IV.SIG SCH (13:00)
[2018-05-27] MEDS ORDERED: Pharmacy Ordered Lab Info OTHER ONE (12:45)
== END 2018-05-25 10:20 | disposition home or self-care (01) ==
LOC: PHEDA 12:57 → PHED 12:57 → PH3 12:57 → PHEDA 18:12 → PH3 18:13
PROVIDERS: ADMIT Family Medicine; ATTEND Family Medicine